=== PATIENT | male | born 1960 | race Caucasian/White ===

== ENCOUNTER 2019-06-15 17:30 | Emergency (ER) | payer OTHER ==
[~2019-06-15] VITALS: Ht 180 cm; Wt 91.0 kg
--- NOTE | 2019-06-15 18:01 | NUR ---
LACERATION MEASURES 5.5CM X1CM. SHANICE MS3 W/ PT AT THIS TIME.
--- NOTE | 2019-06-15 18:13 | ED Upper Extremity ---
General Chief Complaint: Laceration Stated Complaint: L ARM LAC Nursing Triage Note: PT REPORTS WAS CUTTING OPEN A BAG OF DOG FOOD WHEN THE KNIFE SLIPPED CUTTING HIS LT FOREARM. LACERATION NOTED TO LT INNER FOREARM Nursing Sepsis Screen: No Definite Risk Source: patient (SHALINI MANRIQUEZMILLADULCE CHRISTIAN GAMBINO) History of Present Illness Date Seen by Provider: Jun 15, 2019 Time Seen by Provider: 18:00 Initial Comments This is a 59 y/o male who presents to the ED via POV w/ laceration to L inner forearm. States around 5pm today, he was cutting dog food open with a sharp knife when his hand slipped and cut his L forearm. States the laceration "kept soaking the gauze" so he put an OTC "Wound Seal hemostatic powder" which stopped the bleeding. Pt is not on anticoagulants. States he is due for a Tetanus shot. Wound is not actively bleeding at the time of eval. No other complaints at this time. Onset: just prior to arrival Pain/Injury Location: left forearm Method of Injury: incised Associated Symptoms: none (AME MANRIQUEZ) Allergies and Home Medications Allergies Coded Allergies: No Known Drug Allergies (Unverified , 02/13/13) Home Medications No Active Prescriptions or Reported Meds Patient Home Medication List Home Medication List Reviewed: Yes (ARIES RAYMUNDO MD) Review of Systems Constitutional: No chills, No fever EENTM: no symptoms reported Respiratory: no symptoms reported Cardiovascular: no symptoms reported Gastrointestinal: no symptoms reported Genitourinary: no symptoms reported Musculoskeletal: no symptoms reported Skin: lesions (5.5 x 1 cm laceration to L inner forearm, no active bleeding) (AME MANRIQUEZ) Past Tubnvgb-Kirmul-Yyedua Hx Patient Social History Recent Foreign Travel: No Contact w/Someone Who Travel: No Recent Infectious Disease Expo: No (AME MANRIQUEZ) Immunizations Up To Date Tetanus Booster (TDap): Unknown (AME MANRIQUEZ) Physical Exam Vital Signs Vital Signs - First Documented 06/15/19 17:34 Temp 36.2 Pulse 91 Resp 18 B/P (MAP) 138/89 (105) Pulse Ox 96 O2 Delivery Room Air (ARIES RAYMUNDO MD) Vital Signs Capillary Refill : Less Than 3 Seconds [facility] Height, Weight, BMI Height: 6'" Weight: 185lbs. oz. 83.767955la; 28.00 BMI Method: General Appearance: WD/WN, no apparent distress Cardiovascular: normal peripheral pulses, regular rate, rhythm, no edema, no gallop, no JVD, no murmur Respiratory: chest non-tender, lungs clear, normal breath sounds, no respiratory distress, no accessory muscle use Shoulder: normal inspection, no evidence of injury Elbow/Forearm: normal ROM, abrasions (5.5 x 1 cm linear laceration to L inner forearm, no active bleeding, no evidence of muscle or major nerve involvement, sensation intact, able to move all fingers, normal pulse and capillary refill) Wrist: Yes normal inspection, Yes no evidence of injury, Yes normal ROM Hand: normal inspection, no evidence of injury Neurologic/Tendon: normal sensation, normal motor functions, normal tendon functions, responds to pain, no evidence tendon injury Neurologic/Psychiatric: alert, oriented x 3 Skin: normal color, warm/dry (AME MANRIQUEZ [facility]) Procedures/Interventions Wound Location: Upper Extremities Wound Length (cm): 5.5 Wound's Depth, Shape: linear, sub Q Wound Explored: clean Irrigated w/ Saline (ccs): 450 Betadine Prep?: Yes Anesthesia: Lidocaine w/ Epi Volume Anesthetic (ccs): 10 Wound Debrided: minimal Suture: Prolene Suture Size: 4-0 Number of Sutures: 6 Sterile Dressing Applied?: Yes Progress Wound approximated well. Pt tolerated procedure well. (AME MANRIQUEZ [facility]) Progress/Results/Core Measures Results/Orders My Orders Orders - ARIES RAYMUNDO MD Dipht,Pertuss(Acell),Tet Adult (Boostrix (06/15/19 18:30) Lidocaine/Epi 1% 1:100,000 (Xylocaine /E (06/15/19 18:45) Lidocaine/Epi 2% 1:100,000 (Xylocaine/Ep (06/15/19 18:34) (ARIES RAYMUNDO MD) Medications Given in ED (ARIES RAYMUNDO MD) Vital Signs/I&O (ARIES RAYMUNDO MD) Blood Pressure Mean: 105 Departure Impression Primary Impression: Laceration of forearm Qualified Codes: S51.812A - Laceration without foreign body of left forearm, initial encounter Disposition: 01 HOME, SELF-CARE Condition: Improved Departure-Patient Inst. Decision time for Depature: 19:36 (ARIES RAYMUNDO MD) Referrals: BONNIE CHERRY MD (PCP/Family) Primary Care Physician Patient Instructions: Laceration Repair With Stitches (DC) Add. Discharge Instructions: Keep the wound clean and dry except for normal showering. Do not submerge until after sutures are removed. Monitor the wound for signs of infection such as increasing redness, increasing swelling, increasing pain, puslike drainage, or fever. Return to care promptly if you notice these symptoms. Keep the wound covered when active or in dirty environments. Expect the wound to ooze for a couple of days. Use anabolic ointment or Vaseline to prevent dressing from sticking to the wound if needed. You may use Tylenol (acetaminophen) up to 1000 mg every 6 hours as needed for pain. Return in 10 days to have the sutures removed. All discharge instructions reviewed with patient and/or family. Voiced understanding. Scripts No Active Prescriptions or Reported Meds I personally interviewed and examined this patient along with the medical student as documented above. I reviewed her history, physical, assessment, and agree with her documentation. I supervised the repair of patient's laceration. (ARIES RAYMUNDO MD) AME MANRIQUEZ [facility] Jun 15, 2019 18:13 ARIES RAYMUNDO MD Jun 15, 2019 19:39
[2019-06-15] MEDS ORDERED: TETANUS,DIPTH,PERTUSS P/F (BOOSTRIX) 0.5 ML VIAL IM ONE (18:30)
[2019-06-15] MEDS ORDERED: LIDOCAINE/EPI 2% 1:100,00 (XYLOCAINE) 20 ML VIAL ONE (18:34)
[2019-06-15] MEDS ORDERED: LIDOCAINE/EPI 1%-1:100,000 (XYLOCAINE) 20ML INJ ONE (18:45)
[2019-06-15 19:43] VITALS: BP 138/89
--- NOTE | 2019-06-15 21:00 | NUR ---
ASSUMED PRIMARY NURSE ROLE.
== END 2019-06-15 19:44 | disposition home or self-care (01) ==
LOC: ER 17:30 → EDUNIT# 17:30 → ER 19:44
DX: S51.812A Laceration without foreign body of left forearm, initial encounter (principal); Z23 Encounter for immunization; W26.0XXA Contact with knife, initial encounter
CPT/HCPCS: 90471; 90715

== ENCOUNTER → 2019-06-22 | Outpatient (CLI) | payer OTHER ==
--- NOTE | 2019-06-22 10:56 | Diagnostic Imaging Report ---
INDICATION: Right knee popping and lateral pain. Time of exam 10:19 AM 3 views of the right knee were obtained. Alignment is normal. The medial and lateral compartments are well maintained. Articular surfaces are smooth. There is spurring of the tibial spines. There is moderate patellofemoral compartmental degenerative change. There is a large suprapatellar knee joint effusion. No fracture is identified. IMPRESSION: Large joint effusion and degenerative changes. No acute bony abnormality is detected. Dictated by: Dictated on workstation # [id number]
== END ==
LOC: RAD 09:56
PROVIDERS: ATTEND Nurse Practitioner Family
DX: M25.561 Pain in right knee (principal); M25.461 Effusion, right knee; M17.11 Unilateral primary osteoarthritis, right knee
CPT/HCPCS: 73562

== ENCOUNTER 2019-06-25 15:23 | Emergency (ER) | payer OTHER ==
[~2019-06-25] VITALS: Ht 172 cm; Wt 85.0 kg
[2019-06-25 15:34] VITALS: BP 126/85
== END 2019-06-25 15:34 | disposition home or self-care (01) ==
LOC: EDUNIT# 15:23 → ER 15:24
DX: S51.812D Laceration without foreign body of left forearm, subsequent encounter (principal); X58.XXXD Exposure to other specified factors, subsequent encounter

== ENCOUNTER → 2019-06-29 | Outpatient (CLI) | payer OTHER ==
--- NOTE | 2019-06-29 10:39 | Diagnostic Imaging Report ---
EXAMINATION: Magnetic resonance imaging of the right knee without intravenous contrast DATE: June 29, 2019. COMPARISON: Right knee radiographs June 22, 2019. INDICATION: 59-year-old male, right knee pain. TECHNIQUE: Multiplanar, multisequence non contrast enhanced MR imaging was accomplished. FINDINGS: MENISCI: There is signal in the body and posterior horn of the medial meniscus not definitely contacting the articular surface which is not meeting strict MR criteria for definite diagnosis of tear. There is a longitudinal horizontal type tear involving the body and posterior horn of the lateral meniscus. LIGAMENTS AND TENDONS: The anterior and posterior cruciate ligaments are intact. The medial collateral ligament is intact. The iliotibial band, mid third lateral capsular ligament, fibular collateral ligament, biceps femoris tendon and conjoined tendon are intact. The quadriceps tendon and patella ligament are intact. JOINT: There are broad areas of full-thickness cartilage loss involving the lateral patellar facet and median patellar ridge. There is a 12 mm wide area of prominent cartilage irregularity involving the mid weightbearing portion of the medial femoral condyle with areas of near full-thickness cartilage loss. The lateral compartment cartilage is grossly intact. There is a moderate to large knee joint effusion. There is no prominent synovitis. There are intra-articular bodies posteriorly on a sagittal PD fat saturation sequence image 14 which measure up to approximately 4 x 4 mm in size. BONE: There is no acute fracture, bone contusion, or evidence of osteonecrosis. There is degenerative related marrow edema adjacent to the patellofemoral compartment. There are areas of subcortical cystic change in the posterior aspect of the medial tibial plateau. BURSAE AND SOFT TISSUES: There is a partially ruptured small Ramires's cyst. There is nonspecific prepatellar subcutaneous edema. IMPRESSION: 1. Signal in the medial meniscus not meeting strict MRI criteria for definite diagnosis of tear. 2. Longitudinal horizontal type tear involving the body and posterior horn of the lateral meniscus. 3. Intact anterior and posterior cruciate ligaments. Additional ligaments and tendons are intact. 4. 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 5. No acute fracture. No evidence of osteonecrosis. 6. Partially ruptured small Ramires's cyst. Dictated by: Dictated on workstation # [id number]
== END ==
LOC: RAD 08:09
PROVIDERS: ATTEND Nurse Practitioner Family
DX: M23.251 Derangement of posterior horn of lateral meniscus due to old tear or injury, right knee (principal); M17.11 Unilateral primary osteoarthritis, right knee; M66.0 Rupture of popliteal cyst
CPT/HCPCS: 73721